=== PATIENT | female | born 1935 | race Caucasian/White ===

== ENCOUNTER 2023-05-11 22:03 | Emergency (ER) | payer MEDICARE ==
[~2023-05-11 22:03] MED LIST: Iopamidol-370 76% 500 ML MDV (1 ML CHARGE) ONE
[2023-05-11 23:42] LABS: #Monocytes 0.7 thou/uL (0.11-0.59); #Neutrophils 5.6 thou/uL (1.40-6.50); %Basophils 0.4 % (0.0-1.0); %Eosinophils 0.4 % (0.0-10.0); %Lymphocytes 12.1 % (21.0-51.0); %Monocytes 9.8 % (0.0-10.0); %Neutrophils 75.9 % (42.0-75.0); Hematocrit 32.1 % (36.0-47.0); Hemoglobin 10.1 g/dL (12.0-16.0); Mean Corpuscular HGB CONC 31.5 g/dL (32.0-36.0); Mean Corpuscular Hemoglobin 29.1 pg (27.0-31.0); Mean Corpuscular Volume 92.5 fl (78.0-98.0); Mean Platelet Volume 8.6 fL (7.4-10.4); Platelet Count 277 10x3/uL (130-400); RBC Distribution Width 14.6 % (11.5-14.5); Red Blood Cell (RBC) Count 3.47 mill/uL (4.20-5.40); White Blood Cell (WBC) Count 7.4 10x3/uL (4.8-10.8)
[2023-05-11] MEDS ORDERED: Ondansetron PF 4 MG/2 ML Vial ONE (23:51)
[2023-05-11] MEDS ORDERED: Morphine 2 MG/ML VIAL ONE (23:51)
[2023-05-12 00:07] LABS: ALT (SGPT) 12 U/L (8-55); AST (SGOT) 14 U/L (5-34); Albumin 3.3 g/dL (3.4-4.8); Alkaline Phosphatase 220 U/L (40-110); Anion Gap 16 mmol/L (10-20); BUN (Urea Nitrogen) 11 mg/dL (9.8-20.1); Bilirubin, Total 0.5 mg/dL (0.2-1.2); Calc. Creatinine Clearance 0 mL/min (70-130); Calcium 8.3 mg/dL (7.8-10.44); Carbon Dioxide 28 mmol/L (23-31); Chloride 92 mmol/L (98-107); Estimated GFR 67; Globulin 3.4 g/dL (2.4-3.5); Glucose 108 mg/dL (83-110); Lipase 18 U/L (8-78); Protein, Total 6.7 g/dL (5.8-8.1); Sodium 133 mmol/L (136-145)
[2023-05-12 00:14] LABS: Troponin I 0.014 ng/mL (< 0.028)
[2023-05-12 01:31] LABS: Bacteria/HPF 4+ HPF (None Seen); Bilirubin Negative (Negative); Blood, Urine 2+ (Negative); CAUTI Indications for Culture Pelvic or flank pain; Clarity Extra Turbid (Clear); Glucose, Urine (Dipstick) Normal (Negative); Ketone, Urine Negative (Negative); Leukocyte 500 Leu/uL (Negative); Nitrite Negative (Negative); Protein, Urine (Dipstick) 70 mg/dL (Neg-Trace); RBC/HPF Greater than 50 HPF (0-3); Specific Gravity, Urine 1.006 (1.002-1.036); Squamous Epithelial 0-3 HPF (0-3); Urobilinogen Normal mg/dL (Less than 2); WBC/HPF Greater than 50 HPF (0-3)
[2023-05-12 01:35] LABS: Urine Culture Reflex Yes Yes
== END 2023-05-12 03:42 | disposition home or self-care (01) ==
LOC: ERS 22:03
DX: K59.00 Constipation, unspecified (principal); R33.9 Retention of urine, unspecified; I10 Essential (primary) hypertension; E78.5 Hyperlipidemia, unspecified
CPT/HCPCS: 36415; 74177; 80053; 81001; 83605; 83690; 84484; 85025; 87077; 87086; 93005; 96374; 96375; J2272; J2405; Q9967

== ENCOUNTER 2023-05-27 17:25 | Emergency (ER) | payer MEDICARE ==
[2023-05-27 18:55] LABS: #Eosinphils 0.1 thou/uL (0.0-0.7); #Monocytes 0.6 thou/uL (0.11-0.59); #Neutrophils 4.8 thou/uL (1.40-6.50); %Basophils 0.3 % (0.0-1.0); %Eosinophils 1.9 % (0.0-10.0); %Lymphocytes 17.5 % (21.0-51.0); %Monocytes 8.8 % (0.0-10.0); %Neutrophils 70.6 % (42.0-75.0); Hematocrit 35.3 % (36.0-47.0); Hemoglobin 11.2 g/dL (12.0-16.0); Mean Corpuscular HGB CONC 31.7 g/dL (32.0-36.0); Mean Corpuscular Hemoglobin 29.6 pg (27.0-31.0); Mean Corpuscular Volume 93.1 fl (78.0-98.0); Mean Platelet Volume 8.6 fL (7.4-10.4); Platelet Count 341 10x3/uL (130-400); RBC Distribution Width 14.9 % (11.5-14.5); Red Blood Cell (RBC) Count 3.79 mill/uL (4.20-5.40); White Blood Cell (WBC) Count 6.7 10x3/uL (4.8-10.8)
[2023-05-27 19:21] LABS: PTT 33.2 sec (22.9-36.1); Prothrombin Time 13.9 sec (12.0-14.7)
[2023-05-27 19:24] LABS: ALT (SGPT) 14 U/L (8-55); AST (SGOT) 23 U/L (5-34); Albumin 3.5 g/dL (3.4-4.8); Alkaline Phosphatase 233 U/L (40-110); Anion Gap 12 mmol/L (10-20); BUN (Urea Nitrogen) 19 mg/dL (9.8-20.1); Bilirubin, Total 0.4 mg/dL (0.2-1.2); Calc. Creatinine Clearance 0 mL/min (70-130); Carbon Dioxide 27 mmol/L (23-31); Chloride 97 mmol/L (98-107); Estimated GFR 34; Globulin 3.3 g/dL (2.4-3.5); Glucose 107 mg/dL (83-110); Potassium 3.1 mmol/L (3.5-5.1); Protein, Total 6.8 g/dL (5.8-8.1); Sodium 133 mmol/L (136-145)
== END 2023-05-27 23:16 | disposition home or self-care (01) ==
LOC: ERS 17:25
DX: S52.571A Other intraarticular fracture of lower end of right radius, initial encounter for closed fracture (principal); S52.611A Displaced fracture of right ulna styloid process, initial encounter for closed fracture; I10 Essential (primary) hypertension; J44.9 Chronic obstructive pulmonary disease, unspecified; F03.90 Unspecified dementia, unspecified severity, without behavioral disturbance, psychotic disturbance, mood disturbance, and anxiety; W07.XXXA Fall from chair, initial encounter; Z79.899 Other long term (current) drug therapy
CPT/HCPCS: 36415; 70450; 71045; 72125; 80053; 85025; 85610; 85730; 93005

== ENCOUNTER 2023-08-01 13:15 | Inpatient (IN) | payer MEDICARE ==
[2023-08-01 15:32] LABS: #Eosinphils 0.2 thou/uL (0.0-0.7); #Monocytes 0.8 thou/uL (0.11-0.59); #Neutrophils 6.7 thou/uL (1.40-6.50); %Basophils 0.2 % (0.0-1.0); %Eosinophils 2.1 % (0.0-10.0); %Lymphocytes 17.6 % (21.0-51.0); %Monocytes 8.4 % (0.0-10.0); %Neutrophils 70.8 % (42.0-75.0); Hematocrit 29.8 % (36.0-47.0); Hemoglobin 9.8 g/dL (12.0-16.0); Mean Corpuscular HGB CONC 32.9 g/dL (32.0-36.0); Mean Corpuscular Volume 91.1 fl (78.0-98.0); Mean Platelet Volume 9.2 fL (7.4-10.4); Platelet Count 429 10x3/uL (130-400); RBC Distribution Width 14.6 % (11.5-14.5); Red Blood Cell (RBC) Count 3.27 mill/uL (4.20-5.40); White Blood Cell (WBC) Count 9.4 10x3/uL (4.8-10.8)
[2023-08-01 16:00] LABS: ALT (SGPT) 8 U/L (8-55); AST (SGOT) 15 U/L (5-34); Albumin 2.5 g/dL (3.4-4.8); Alkaline Phosphatase 96 U/L (40-110); Anion Gap 14 mmol/L (10-20); BUN (Urea Nitrogen) 12 mg/dL (9.8-20.1); Bilirubin, Total 0.8 mg/dL (0.2-1.2); Calc. Creatinine Clearance 0 mL/min (70-130); Calcium 7.7 mg/dL (7.8-10.44); Carbon Dioxide 30 mmol/L (23-31); Chloride 91 mmol/L (98-107); Estimated GFR 69; Globulin 3.2 g/dL (2.4-3.5); Glucose 86 mg/dL (83-110); Protein, Total 5.7 g/dL (5.8-8.1); Sodium 133 mmol/L (136-145)
[2023-08-01 16:09] LABS: Potassium 2.2 mmol/L (3.5-5.1)
[2023-08-01] MEDS ORDERED: Ondansetron PF 4 MG/2 ML Vial IVP PRN (16:09)
[2023-08-01] MEDS ORDERED: hydrALAZINE 20 MG/ML VIAL SLOW IVP PRN (16:09)
[2023-08-01] MEDS ORDERED: Ipratropium/Albuterol 3 ML NEB NEB PRN (16:09)
[2023-08-01] MEDS ORDERED: Morphine 2 MG/ML VIAL SLOW IVP PRN (16:09)
[2023-08-01] MEDS ORDERED: Sodium Chloride 0.9% 1,000 ML IV SCH ×2 (16:15→16:17)
[2023-08-01] MEDS ORDERED: Senokot S 8.6-50 MG TAB PO PRN (16:19)
[2023-08-01] MEDS ORDERED: Albumin 25% 25 GM (100 mL) BOT IVPB SCH (16:30)
[2023-08-01] MEDS ORDERED: Hydrocortisone Sod Succ/PF 100 mg/2 ml Vial IVP SCH ×2 (16:30→18:00)
[2023-08-01] MEDS ORDERED: Ondansetron PF 4 MG/2 ML Vial ONE (16:31)
[2023-08-01] MEDS ORDERED: Morphine 4 MG/ML VIAL ONE (16:31)
[2023-08-01] MEDS ORDERED: Potassium Chloride 20 MEQ TAB PO SCH (16:45)
[2023-08-01] MEDS ORDERED: Lactated Ringer's 1,000 ML IV SCH (16:45)
[2023-08-01] MEDS ORDERED: Magnesium 2 GM/50 ML(in water) 2 GM in Premix 1 BAG IVPB SCH (16:45)
[2023-08-01] MEDS ORDERED: Acetaminophen 500 MG TAB ONE (21:03)
[2023-08-01] MEDS ORDERED: traMADol HCl 50 MG TAB ONE (21:03)
[2023-08-01] MEDS ORDERED: Potassium Chloride 20 MEQ TAB ONE (21:03)
[2023-08-01] MEDS ORDERED: Famotidine/PF 20 mg/2ml Vial ONE (21:04)
[2023-08-01] MEDS ORDERED: Magnesium 2 GM/50 ML BAG (IN WATER) ONE (21:04)
[2023-08-01] MEDS ORDERED: Potassium Chloride 20 MEQ (100 mL) BAG ONE (21:04)
[2023-08-01] MEDS: Acetaminophen 500 MG TAB PO SCH (21:11)
[2023-08-01] MEDS: traMADol HCl 50 MG TAB PO SCH (21:12)
[2023-08-01] MEDS: Famotidine/PF 20 mg/2ml Vial SLOW IVP SCH (21:17)
[2023-08-01 21:51] VITALS: BMI 19.4
[2023-08-01] MEDS: Ascorbic Acid 500 mg Chewable Tablet PO SCH (22:35)
[2023-08-01] MEDS: Cinacalcet HCl 30 MG TAB PO SCH (22:35)
[2023-08-01] MEDS: Ferrous Sulfate 325 MG TAB PO SCH (22:35)
[2023-08-01] MEDS: Potassium Chloride 20 MEQ in Premix 1 BAG IVPB SCH (22:58)
[2023-08-01 23:40] LABS: Anion Gap 17 mmol/L (10-20); BUN (Urea Nitrogen) 11 mg/dL (9.8-20.1); Calc. Creatinine Clearance 41 mL/min (70-130); Calcium 8.2 mg/dL (7.8-10.44); Carbon Dioxide 23 mmol/L (23-31); Chloride 93 mmol/L (98-107); Estimated GFR 69; Glucose 90 mg/dL (83-110); Sodium 131 mmol/L (136-145)
[2023-08-01 23:47] LABS: Critical Call Chemistry NUR.RR5@2345; Potassium 2.4 mmol/L (3.5-5.1)
[2023-08-02] MEDS ORDERED: Acetaminophen 500 MG TAB ONE (01:02)
[2023-08-02] MEDS ORDERED: Potassium Chloride 20 MEQ (100 mL) BAG ONE ×3 (01:02→08:20)
[2023-08-02] MEDS: Potassium Chloride 20 MEQ in Premix 1 BAG IVPB SCH ×3 (01:09→08:29)
[2023-08-02] MEDS: Acetaminophen 500 MG TAB PO SCH ×4 (01:10→18:19)
[2023-08-02] MEDS ORDERED: Hydrocortisone Sod Succ/PF 100 mg/2 ml Vial IVP SCH (02:00)
[2023-08-02] MEDS ORDERED: Hydrocortisone Sod Succ/PF 100 mg/2 ml Vial ONE ×2 (03:37→09:57)
[2023-08-02 04:14] LABS: #Monocytes 0.2 thou/uL (0.11-0.59); #Neutrophils 8.1 thou/uL (1.40-6.50); %Basophils 0.2 % (0.0-1.0); %Lymphocytes 8.5 % (21.0-51.0); %Monocytes 1.8 % (0.0-10.0); %Neutrophils 88.4 % (42.0-75.0); Hematocrit 32.3 % (36.0-47.0); Hemoglobin 10.4 g/dL (12.0-16.0); Mean Corpuscular HGB CONC 32.2 g/dL (32.0-36.0); Mean Corpuscular Hemoglobin 29.5 pg (27.0-31.0); Mean Corpuscular Volume 91.8 fl (78.0-98.0); Mean Platelet Volume 9.3 fL (7.4-10.4); Platelet Count 424 10x3/uL (130-400); RBC Distribution Width 14.6 % (11.5-14.5); Red Blood Cell (RBC) Count 3.52 mill/uL (4.20-5.40); White Blood Cell (WBC) Count 9.1 10x3/uL (4.8-10.8)
[2023-08-02 04:39] LABS: Phosphorus 3.2 mg/dL (2.3-4.7)
[2023-08-02 04:40] LABS: Anion Gap 21 mmol/L (10-20); BUN (Urea Nitrogen) 11 mg/dL (9.8-20.1); Calc. Creatinine Clearance 41 mL/min (70-130); Calcium 8.8 mg/dL (7.8-10.44); Carbon Dioxide 23 mmol/L (23-31); Chloride 95 mmol/L (98-107); Estimated GFR 69; Glucose 94 mg/dL (83-110); Magnesium 1.9 mg/dL (1.6-2.6); Potassium 2.9 mmol/L (3.5-5.1); Sodium 136 mmol/L (136-145)
[2023-08-02] MEDS ORDERED: Magnesium 2 GM/50 ML(in water) 2 GM in Premix 1 BAG IVPB SCH (06:30)
[2023-08-02] MEDS ORDERED: Ondansetron PF 4 MG/2 ML Vial ONE (06:30)
[2023-08-02] MEDS ORDERED: Morphine 2 MG/ML VIAL ONE (06:30)
[2023-08-02] MEDS ORDERED: Magnesium 2 GM/50 ML BAG (IN WATER) ONE (06:31)
[2023-08-02] MEDS ORDERED: Famotidine/PF 20 mg/2ml Vial ONE (08:20)
[2023-08-02] MEDS: Famotidine/PF 20 mg/2ml Vial SLOW IVP SCH ×2 (08:30→21:57)
[2023-08-02] MEDS ORDERED: Sertraline 25 MG TAB ONE (09:41)
[2023-08-02] MEDS ORDERED: Sertraline 100 MG TAB ONE (09:45)
[2023-08-02] MEDS: Cinacalcet HCl 30 MG TAB PO SCH ×2 (09:54→21:57)
[2023-08-02] MEDS: Ezetimibe 10 MG TAB PO SCH (09:54)
[2023-08-02] MEDS: Memantine 5 MG TAB PO SCH (09:54)
[2023-08-02] MEDS: Ferrous Sulfate 325 MG TAB PO SCH ×2 (09:54→18:19)
[2023-08-02] MEDS: Sertraline 100 MG TAB PO SCH (09:55)
[2023-08-02] MEDS ORDERED: traMADol HCl 50 MG TAB ONE (09:57)
[2023-08-02] MEDS: traMADol HCl 50 MG TAB PO SCH ×2 (09:58→21:57)
[2023-08-02] MEDS: Hydrocortisone Sod Succ/PF 100 mg/2 ml Vial IVP SCH ×2 (10:00→18:20)
[2023-08-02] MEDS: Ascorbic Acid 500 mg Chewable Tablet PO SCH ×2 (10:00→21:57)
[2023-08-03] MEDS: Acetaminophen 500 MG TAB PO SCH ×4 (00:58→18:23)
[2023-08-03] MEDS: Hydrocortisone Sod Succ/PF 100 mg/2 ml Vial IVP SCH ×3 (01:53→18:22)
[2023-08-03 07:11] LABS: Anion Gap 16 mmol/L (10-20); BUN (Urea Nitrogen) 11 mg/dL (9.8-20.1); Calc. Creatinine Clearance 38 mL/min (70-130); Calcium 8.8 mg/dL (7.8-10.44); Carbon Dioxide 25 mmol/L (23-31); Chloride 98 mmol/L (98-107); Estimated GFR 65; Glucose 115 mg/dL (83-110); Potassium 3.7 mmol/L (3.5-5.1); Sodium 135 mmol/L (136-145)
[2023-08-03] MEDS: Ferrous Sulfate 325 MG TAB PO SCH ×2 (10:19→18:23)
[2023-08-03] MEDS: Aspirin 81 mg Enteric Coated Tablet PO SCH ×2 (10:19→20:27)
[2023-08-03] MEDS: Famotidine/PF 20 mg/2ml Vial SLOW IVP SCH (10:19)
[2023-08-03] MEDS: Memantine 5 MG TAB PO SCH (10:19)
[2023-08-03] MEDS: Sertraline 100 MG TAB PO SCH (10:19)
[2023-08-03] MEDS: Ascorbic Acid 500 mg Chewable Tablet PO SCH ×2 (10:19→20:27)
[2023-08-03] MEDS: Ezetimibe 10 MG TAB PO SCH (10:20)
[2023-08-03] MEDS: Cinacalcet HCl 30 MG TAB PO SCH ×2 (10:20→20:27)
[2023-08-03] MEDS: traMADol HCl 50 MG TAB PO SCH ×2 (10:20→20:27)
[2023-08-04] MEDS: Acetaminophen 500 MG TAB PO SCH ×4 (00:32→17:00)
[2023-08-04] MEDS: Hydrocortisone Sod Succ/PF 100 mg/2 ml Vial IVP SCH ×3 (02:36→17:01)
[2023-08-04] MEDS: Famotidine/PF 20 mg/2ml Vial SLOW IVP SCH (09:45)
[2023-08-04] MEDS: Ferrous Sulfate 325 MG TAB PO SCH ×2 (09:48→17:00)
[2023-08-04] MEDS: traMADol HCl 50 MG TAB PO SCH ×2 (09:49→21:45)
[2023-08-04] MEDS: Cinacalcet HCl 30 MG TAB PO SCH ×2 (09:49→21:45)
[2023-08-04] MEDS: Sertraline 100 MG TAB PO SCH (09:49)
[2023-08-04] MEDS: Aspirin 81 mg Enteric Coated Tablet PO SCH ×2 (09:49→21:45)
[2023-08-04] MEDS: Ezetimibe 10 MG TAB PO SCH (09:49)
[2023-08-04] MEDS: Ascorbic Acid 500 mg Chewable Tablet PO SCH ×2 (09:49→21:45)
[2023-08-04] MEDS: Memantine 5 MG TAB PO SCH (09:55)
[2023-08-05] MEDS: Acetaminophen 500 MG TAB PO SCH ×4 (00:47→17:05)
[2023-08-05] MEDS: Hydrocortisone Sod Succ/PF 100 mg/2 ml Vial IVP SCH ×3 (02:58→17:06)
[2023-08-05] MEDS: traMADol HCl 50 MG TAB PO SCH ×2 (09:36→21:20)
[2023-08-05] MEDS: Ascorbic Acid 500 mg Chewable Tablet PO SCH ×2 (09:36→21:20)
[2023-08-05] MEDS: Ezetimibe 10 MG TAB PO SCH (09:36)
[2023-08-05] MEDS: Ferrous Sulfate 325 MG TAB PO SCH ×2 (09:36→17:05)
[2023-08-05] MEDS: Famotidine/PF 20 mg/2ml Vial SLOW IVP SCH (09:36)
[2023-08-05] MEDS: Sertraline 100 MG TAB PO SCH (09:36)
[2023-08-05] MEDS: Memantine 5 MG TAB PO SCH (09:36)
[2023-08-05] MEDS: Aspirin 81 mg Enteric Coated Tablet PO SCH ×2 (09:36→21:20)
[2023-08-05] MEDS: Cinacalcet HCl 30 MG TAB PO SCH ×2 (09:36→21:22)
[2023-08-06] MEDS: Acetaminophen 500 MG TAB PO SCH ×5 (00:47→22:20)
[2023-08-06] MEDS: Hydrocortisone Sod Succ/PF 100 mg/2 ml Vial IVP SCH (01:02)
[2023-08-06] MEDS: traMADol HCl 50 MG TAB PO SCH ×2 (09:47→22:21)
[2023-08-06] MEDS: Famotidine 20 MG TAB PO SCH (09:47)
[2023-08-06] MEDS: Memantine 5 MG TAB PO SCH (09:47)
[2023-08-06] MEDS: Ezetimibe 10 MG TAB PO SCH (09:47)
[2023-08-06] MEDS: Ferrous Sulfate 325 MG TAB PO SCH ×2 (09:47→17:43)
[2023-08-06] MEDS: Cinacalcet HCl 30 MG TAB PO SCH ×2 (09:48→22:21)
[2023-08-06] MEDS: Ascorbic Acid 500 mg Chewable Tablet PO SCH ×2 (09:49→22:21)
[2023-08-06] MEDS: Aspirin 81 mg Enteric Coated Tablet PO SCH ×2 (09:49→22:21)
[2023-08-06] MEDS: Sertraline 100 MG TAB PO SCH (09:49)
[2023-08-07] MEDS: Acetaminophen 500 MG TAB PO SCH ×3 (06:30→18:24)
[2023-08-07] MEDS: Cinacalcet HCl 30 MG TAB PO SCH ×2 (10:43→21:14)
[2023-08-07] MEDS: Famotidine 20 MG TAB PO SCH (10:43)
[2023-08-07] MEDS: Ezetimibe 10 MG TAB PO SCH (10:43)
[2023-08-07] MEDS: Sertraline 100 MG TAB PO SCH (10:44)
[2023-08-07] MEDS: Memantine 5 MG TAB PO SCH (10:44)
[2023-08-07] MEDS: Ferrous Sulfate 325 MG TAB PO SCH ×2 (10:44→18:25)
[2023-08-07] MEDS: Aspirin 81 mg Enteric Coated Tablet PO SCH ×2 (10:44→21:13)
[2023-08-07] MEDS: Ascorbic Acid 500 mg Chewable Tablet PO SCH ×2 (10:44→21:14)
[2023-08-07] MEDS: traMADol HCl 50 MG TAB PO SCH ×2 (10:44→21:13)
[2023-08-08] MEDS: Acetaminophen 500 MG TAB PO SCH ×4 (00:14→17:33)
[2023-08-08] MEDS: traMADol HCl 50 MG TAB PO SCH ×2 (10:53→20:43)
[2023-08-08] MEDS: Ferrous Sulfate 325 MG TAB PO SCH ×2 (10:53→17:35)
[2023-08-08] MEDS: Aspirin 81 mg Enteric Coated Tablet PO SCH ×2 (10:53→20:44)
[2023-08-08] MEDS: Ascorbic Acid 500 mg Chewable Tablet PO SCH ×2 (10:53→20:43)
[2023-08-08] MEDS: Ezetimibe 10 MG TAB PO SCH (10:54)
[2023-08-08] MEDS: Famotidine 20 MG TAB PO SCH (10:54)
[2023-08-08] MEDS: Memantine 5 MG TAB PO SCH (10:54)
[2023-08-08] MEDS: Amlodipine 5 MG TAB PO SCH (10:54)
[2023-08-08] MEDS: Cinacalcet HCl 30 MG TAB PO SCH ×2 (10:54→20:44)
[2023-08-08] MEDS: Sertraline 100 MG TAB PO SCH (10:54)
[2023-08-09] MEDS: Acetaminophen 500 MG TAB PO SCH ×5 (00:13→23:04)
[2023-08-09 06:09] LABS: #Eosinphils 0.1 thou/uL (0.0-0.7); #Monocytes 0.5 thou/uL (0.11-0.59); #Neutrophils 5.4 thou/uL (1.40-6.50); %Basophils 0.3 % (0.0-1.0); %Eosinophils 1.4 % (0.0-10.0); %Lymphocytes 15.2 % (21.0-51.0); %Monocytes 6.9 % (0.0-10.0); %Neutrophils 74.7 % (42.0-75.0); Hematocrit 32.1 % (36.0-47.0); Hemoglobin 10.4 g/dL (12.0-16.0); Mean Corpuscular HGB CONC 32.4 g/dL (32.0-36.0); Mean Corpuscular Volume 92.5 fl (78.0-98.0); Mean Platelet Volume 8.2 fL (7.4-10.4); Platelet Count 401 10x3/uL (130-400); RBC Distribution Width 15.4 % (11.5-14.5); Red Blood Cell (RBC) Count 3.47 mill/uL (4.20-5.40); White Blood Cell (WBC) Count 7.3 10x3/uL (4.8-10.8)
[2023-08-09 06:16] LABS: Anion Gap 16 mmol/L (10-20); BUN (Urea Nitrogen) 11 mg/dL (9.8-20.1); Calc. Creatinine Clearance 46 mL/min (70-130); Calcium 7.9 mg/dL (7.8-10.44); Carbon Dioxide 25 mmol/L (23-31); Chloride 99 mmol/L (98-107); Estimated GFR 81; Glucose 74 mg/dL (83-110); Potassium 2.7 mmol/L (3.5-5.1); Sodium 137 mmol/L (136-145)
[2023-08-09] MEDS ORDERED: Non-Formulary Item 1 EACH (Ibandronate Sodium [Ibandronate Sodium] 150 MG Tablet) PO SCH (08:30)
[2023-08-09] MEDS: Memantine 5 MG TAB PO SCH (08:42)
[2023-08-09] MEDS: Polyethylene Glycol 3350 17 GM Packet PO SCH (08:42)
[2023-08-09] MEDS: Cinacalcet HCl 30 MG TAB PO SCH ×2 (08:42→19:53)
[2023-08-09] MEDS: Multivitamin W/ Minerals 1 TAB PO SCH (08:42)
[2023-08-09] MEDS: Potassium Chloride 20 MEQ TAB PO SCH ×2 (08:43→17:23)
[2023-08-09] MEDS: Aspirin 81 mg Enteric Coated Tablet PO SCH ×2 (08:43→19:52)
[2023-08-09] MEDS: Trospium 20 MG TAB PO SCH ×2 (08:43→19:52)
[2023-08-09] MEDS: Ascorbic Acid 500 mg Chewable Tablet PO SCH ×2 (08:43→19:52)
[2023-08-09] MEDS: Metoprolol Tartrate 25 MG TAB PO SCH ×2 (08:43→19:52)
[2023-08-09] MEDS: Gabapentin 300 MG CAP PO SCH (08:43)
[2023-08-09] MEDS: Famotidine 20 MG TAB PO SCH (08:44)
[2023-08-09] MEDS: Ezetimibe 10 MG TAB PO SCH (08:44)
[2023-08-09] MEDS: Losartan 25 MG TAB PO SCH (08:44)
[2023-08-09] MEDS: Sertraline 100 MG TAB PO SCH (08:44)
[2023-08-09] MEDS: Simvastatin 10 MG TAB PO SCH (08:44)
[2023-08-09] MEDS: Ferrous Sulfate 325 MG TAB PO SCH ×2 (08:44→17:24)
[2023-08-09] MEDS: Amlodipine 5 MG TAB PO SCH (08:44)
[2023-08-09] MEDS: traMADol HCl 50 MG TAB PO SCH ×2 (08:45→19:52)
[2023-08-09 16:00] LABS: Anion Gap 10 mmol/L (10-20); BUN (Urea Nitrogen) 12 mg/dL (9.8-20.1); Calc. Creatinine Clearance 45 mL/min (70-130); Carbon Dioxide 29 mmol/L (23-31); Chloride 97 mmol/L (98-107); Estimated GFR 77; Glucose 91 mg/dL (83-110); Potassium 3.3 mmol/L (3.5-5.1); Sodium 133 mmol/L (136-145)
[2023-08-09 18:22] LABS: Anion Gap 12 mmol/L (10-20); BUN (Urea Nitrogen) 10 mg/dL (9.8-20.1); Calc. Creatinine Clearance 44 mL/min (70-130); Calcium 8.2 mg/dL (7.8-10.44); Carbon Dioxide 28 mmol/L (23-31); Chloride 97 mmol/L (98-107); Estimated GFR 76; Glucose 93 mg/dL (83-110); Potassium 3.3 mmol/L (3.5-5.1); Sodium 134 mmol/L (136-145)
[2023-08-10] MEDS: Acetaminophen 500 MG TAB PO SCH ×3 (05:37→18:30)
[2023-08-10 05:46] LABS: Anion Gap 12 mmol/L (10-20); BUN (Urea Nitrogen) 10 mg/dL (9.8-20.1); Calc. Creatinine Clearance 46 mL/min (70-130); Calcium 8.3 mg/dL (7.8-10.44); Carbon Dioxide 26 mmol/L (23-31); Chloride 102 mmol/L (98-107); Estimated GFR 81; Glucose 75 mg/dL (83-110); Potassium 4.7 mmol/L (3.5-5.1); Sodium 135 mmol/L (136-145)
[2023-08-10] MEDS: Polyethylene Glycol 3350 17 GM Packet PO SCH (09:41)
[2023-08-10] MEDS: traMADol HCl 50 MG TAB PO SCH ×2 (09:43→22:08)
[2023-08-10] MEDS: Ascorbic Acid 500 mg Chewable Tablet PO SCH ×2 (09:50→22:08)
[2023-08-10] MEDS: Ezetimibe 10 MG TAB PO SCH (09:50)
[2023-08-10] MEDS: Trospium 20 MG TAB PO SCH ×2 (09:50→22:08)
[2023-08-10] MEDS: Multivitamin W/ Minerals 1 TAB PO SCH (09:50)
[2023-08-10] MEDS: Aspirin 81 mg Enteric Coated Tablet PO SCH ×2 (09:51→22:08)
[2023-08-10] MEDS: Gabapentin 300 MG CAP PO SCH (09:52)
[2023-08-10] MEDS: Simvastatin 10 MG TAB PO SCH (09:52)
[2023-08-10] MEDS: Ferrous Sulfate 325 MG TAB PO SCH ×2 (09:52→18:30)
[2023-08-10] MEDS: Sertraline 100 MG TAB PO SCH (09:52)
[2023-08-10] MEDS: Famotidine 20 MG TAB PO SCH (09:53)
[2023-08-10] MEDS: Memantine 5 MG TAB PO SCH (09:53)
[2023-08-10] MEDS: Metoprolol Tartrate 25 MG TAB PO SCH ×2 (09:54→22:08)
[2023-08-10] MEDS: Amlodipine 5 MG TAB PO SCH (09:54)
[2023-08-10] MEDS: Losartan 25 MG TAB PO SCH (09:54)
[2023-08-10] MEDS: Cinacalcet HCl 30 MG TAB PO SCH ×2 (09:55→22:08)
[2023-08-11] MEDS: Acetaminophen 500 MG TAB PO SCH ×4 (00:42→18:42)
[2023-08-11] MEDS: Polyethylene Glycol 3350 17 GM Packet PO SCH (08:53)
[2023-08-11] MEDS: Gabapentin 300 MG CAP PO SCH (08:54)
[2023-08-11] MEDS: Ascorbic Acid 500 mg Chewable Tablet PO SCH (08:54)
[2023-08-11] MEDS: Trospium 20 MG TAB PO SCH (08:54)
[2023-08-11] MEDS: Famotidine 20 MG TAB PO SCH (08:54)
[2023-08-11] MEDS: Sertraline 100 MG TAB PO SCH (08:54)
[2023-08-11] MEDS: Ezetimibe 10 MG TAB PO SCH (08:54)
[2023-08-11] MEDS: Memantine 5 MG TAB PO SCH (08:54)
[2023-08-11] MEDS: Cinacalcet HCl 30 MG TAB PO SCH (08:54)
[2023-08-11] MEDS: Aspirin 81 mg Enteric Coated Tablet PO SCH (08:55)
[2023-08-11] MEDS: Simvastatin 10 MG TAB PO SCH (08:55)
[2023-08-11] MEDS: Multivitamin W/ Minerals 1 TAB PO SCH (08:55)
[2023-08-11] MEDS: Amlodipine 5 MG TAB PO SCH (08:55)
[2023-08-11] MEDS: Losartan 25 MG TAB PO SCH (08:55)
[2023-08-11] MEDS: Ferrous Sulfate 325 MG TAB PO SCH ×2 (08:55→18:42)
[2023-08-11] MEDS: traMADol HCl 50 MG TAB PO SCH (08:56)
[2023-08-11] MEDS: Metoprolol Tartrate 25 MG TAB PO SCH (09:00)
[2023-08-11 16:48] VITALS: BP 127/80; TEMP 97.9
== END 2023-08-11 18:43 | disposition home or self-care (01) | DRG 536 ==
LOC: ERS 13:15 → ERHOLD 15:41 → OBSVTOIN 16:09 → SURG B 08-02 14:42
PROVIDERS: ADMIT Specialist; ATTEND Specialist
PROC: 30233J1 Transfusion of Nonautologous Serum Albumin into Peripheral Vein, Percutaneous Approach (ICD-10-PCS; principal; 2023-08-01)
DX: S72.141A Displaced intertrochanteric fracture of right femur, initial encounter for closed fracture (principal); I50.32 Chronic diastolic (congestive) heart failure; W18.30XA Fall on same level, unspecified, initial encounter; F32.A Depression, unspecified; G89.29 Other chronic pain; M54.9 Dorsalgia, unspecified; F03.90 Unspecified dementia, unspecified severity, without behavioral disturbance, psychotic disturbance, mood disturbance, and anxiety; Z66 Do not resuscitate; Z98.890 Other specified postprocedural states; Z90.710 Acquired absence of both cervix and uterus; Z98.51 Tubal ligation status; E78.5 Hyperlipidemia, unspecified; E87.6 Hypokalemia; I11.0 Hypertensive heart disease with heart failure; Z96.611 Presence of right artificial shoulder joint; Z79.899 Other long term (current) drug therapy; Z79.82 Long term (current) use of aspirin
CPT/HCPCS: 36415; 71045; 72170; 80048; 80053; 82533; 83735; 84100; 85025; 86850; 86900; 86901; 93005; 93010; 93306; 96360; 96361; 97139; G0390; J1720; J2270; J2272; J2405; J3475; J3480; J7120; P9047; S0028